=== PATIENT | male | born 1975 | race Hispanic/Latino ===

== ENCOUNTER 2021-12-29 10:06 | Inpatient (IN) | payer SELFPAY ==
[2021-12-29 10:56] LABS: SARS-CoV-2 Antigen Rapid Res Negative (Negative)
[2021-12-29 12:22] VITALS: BMI 22.4
[2021-12-29] MEDS ORDERED: ACETAMINOPHEN 500 MG TAB PO PRN (13:07)
[2021-12-29] MEDS ORDERED: VANCOMYCIN 1.75 GM in NA CHLORIDE 0.9% 500 ML IVPB SCH (14:00)
[2021-12-29] MEDS ORDERED: CEFEPIME 2 GM in NA CHLORIDE 0.9% 100 ML IV ONE (14:00)
[2021-12-29] MEDS ORDERED: VANCOMYCIN 1.25 GM in NA CHLORIDE 0.9% 250 ML IVPB ONE (14:00)
[2021-12-29] MEDS: NA CHLORIDE 0.9% 1,000 ML IV SCH ×2 (14:09→20:36)
[2021-12-29] MEDS: TRAMADOL HCL 50 MG TAB PO PRN ×2 (14:10→20:37)
[2021-12-29 15:56] LABS: Absolute Lymphocytes (CBC) 1.2 K/uL (0.7-4.9); Hematocrit 36.1 % (39.6-49.0); MCV 87.1 fL (80-100); RBC Red Blood Cell Count 4.15 M/uL (4.33-5.43)
[2021-12-29 16:22] LABS: Albumin 2.4 g/dL (3.4-5.0); Bilirubin Total 0.5 mg/dL (0.2-1.0); Potassium 4.1 mmol/L (3.5-5.1); Protein, Total 8.3 g/dL (6.4-8.2)
[2021-12-29] MEDS: INSULIN -REGULAR HUMAN 50 UNIT/0.5 ML ML SQ SCH ×2 (16:48→21:11)
[2021-12-29] MEDS: CEFEPIME 2 GM in NA CHLORIDE 0.9% 100 ML IV SCH (21:12)
[2021-12-29] MEDS: MORPHINE 4 MG/ML SYR IV PRN (21:19)
[2021-12-29] MEDS: ONDANSETRON 4 MG/2 ML VIAL IV PRN (21:20)
--- NOTE | 2021-12-29 21:43 | P.HP ---
Certification for Inpatient Patient admitted to: Inpatient With expected LOS: >2 Midnights Practitioner: I am a practitioner with admitting privileges, knowledge of patient current condition, hospital course, and medical plan of care. Services: Services provided to patient in accordance with Admission requirements found in Title 42 Section 412.3 of the Code of Federal Regulations Patient History Date of Service: 12/29/21 Reason for admission: septic arthritis History of Present Illness: 46yo M, PMH: NIDDM2 Presents to hospital under guidance of Dr. Hernandez for septic arthritis. Patient reports waxing/waning R knee swelling and pain over last ~1-2 months. Initially treated with anti-inflammatory medications with minimal improvement. Swelling worsened and he presented to outside ED - given antibiotics. He followed up with Ortho and had a recent MRI done a few days ago - revealed swelling and possible infection. Patient presented to Ortho clinic and was noted to have purulent drainage after initiation of antibiotics. He otherwise reports doing ok, no nausea/vomiting, no diarrhea, no chills. He has been having difficulty ambulating secondary to pain and inability to fully extend b/l legs currently Allergies No Known Allergies Allergy (Unverified 12/29/21 10:16) Home Medications: Metformin HCl 1 tab PO BID 12/29/21 - Past Medical/Surgical History Has patient received pneumonia vaccine in the past: No -: DM2 Past Surgical History: Patient denies surgical history - Family History Family History: Reviewed- Non-Contributory - Social History Smoking Status: Former smoker Patient receptive to therapy: Yes Alcohol use: No CD- Drugs: No Caffeine use: Yes Place of Residence: Home Review of Systems 10-point ROS is otherwise unremarkable Physical Examination - Vital Signs Temperature: 98.3 F Blood Pressure: 149/79 Pulse: 80 Respirations: 16 Pulse Ox (%): 97 - Physical Exam General: In no apparent distress, Oriented x3 HEENT: EOMI, Sclerae nonicteric Neck: Supple, No LAD Respiratory: Clear to auscultation bilaterally, Normal air movement Cardiovascular: No edema, Regular rate/rhythm Capillary refill: <2 Seconds Gastrointestinal: Soft and benign, Non-distended, No tenderness Musculoskeletal: No contractures Integumentary: No rashes, Tenderness/swelling (R knee with drainage) Neurological: Normal speech, Normal affect - Studies Laboratory Data (last 24 hrs) 12/29/21 15:21: Sodium 130 L, Potassium 4.1, BUN 14, Creatinine 0.67, Glucose 281 H, Total Bilirubin 0.5, AST 22, ALT 51, Alkaline Phosphatase 122 H 12/29/21 15:21: WBC 8.90, Hgb 12.5 L, Hct 36.1 L, Plt Count 270 Assessment and Plan - Advance Directives Does patient have a Living Will: No Does patient have a Durable POA for Healthcare: No Physician Review Additional Text: Problem List R knee septic arthritis NIDDM2 empiric anitibiotics - vanc/cefepime does not appear septic at this point blood cultures obtained pain medication Dr. George consulted; OR tomorrow will likely need multiple wash outs insulin Time Spent Managing Pts Care (In Minutes): 70
[2021-12-30] MEDS: VANCOMYCIN 1.25 GM in NA CHLORIDE 0.9% 250 ML IVPB SCH ×2 (01:24→14:42)
[2021-12-30] MEDS: TRAMADOL HCL 50 MG TAB PO PRN (02:43)
[2021-12-30 03:51] LABS: Absolute Lymphocytes (CBC) 1.7 K/uL (0.7-4.9); Hematocrit 31.3 % (39.6-49.0); Lymphocytes % 20.9 % (15.3-44.8); MCV 85.6 fL (80-100); MPV 7.8 fL (7.6-11.3); RBC Red Blood Cell Count 3.66 M/uL (4.33-5.43)
[2021-12-30] MEDS: ONDANSETRON 4 MG/2 ML VIAL IV PRN ×2 (04:03→22:58)
[2021-12-30] MEDS: MORPHINE 4 MG/ML SYR IV PRN ×4 (04:03→22:58)
[2021-12-30 04:11] LABS: Bilirubin Total 0.3 mg/dL (0.2-1.0); Magnesium 1.8 mg/dL (1.8-2.4); Phosphorus 2.7 mg/dL (2.5-4.9); Potassium 3.8 mmol/L (3.5-5.1); Protein, Total 6.9 g/dL (6.4-8.2)
[2021-12-30] MEDS: CEFEPIME 2 GM in NA CHLORIDE 0.9% 100 ML IV SCH ×3 (05:11→21:19)
[2021-12-30] MEDS ORDERED: MAGNESIUM SULFATE 1 gm IVPB 1 GM/100 ML BAG IV ONE (06:00)
--- NOTE | 2021-12-30 06:38 | P.PN ---
Date of Service: 12/30/21 Subjective: feels ok today, waiting for surgery pain continues, medication helps worsens when he tried to walk to bathroom overnight ROS: 10 point ROS as noted above, otherwise negative Physical Exam General: In no apparent distress, Oriented x3 HEENT: EOMI, Sclerae nonicteric Respiratory: Clear to auscultation bilaterally, Normal air movement Cardiovascular: No edema, Regular rate/rhythm Integumentary: No rashes, Tenderness/swelling (R knee with drainage) dressing in place MSK: limited ROM due to pain/swelling of R knee Neurological: Normal speech, Normal affect Problem List R knee septic arthritis vs prepatellar abscess NIDDM2 empiric anitibiotics - vanc/cefepime does not appear septic at this point blood cultures obtained pain medication Dr. George consulted; OR today will likely need multiple wash outs insulin as needed VTE: SCD Code: full Dispo: home, ~4-5 days Time Spent Managing Pts Care (In Minutes): 35
[2021-12-30] MEDS ORDERED: KCL 20 MEQ/100 mL IVPB 20 MEQ/100 ML BAG IV SCH (08:00)
[2021-12-30] MEDS: INSULIN -REGULAR HUMAN 50 UNIT/0.5 ML ML SQ SCH ×4 (08:34→21:00)
[2021-12-30 09:38] LABS: Protime INR 1.16
[2021-12-30] MEDS ORDERED: MIDAZOLAM HCL 2 MG/2 ML INJ ONE (11:07)
[2021-12-30] MEDS ORDERED: propofoL 200 MG/20 ML VIAL IV ONE (11:07)
[2021-12-30] MEDS ORDERED: FENTANYL CITR 100 MCG/2 ML ONE (11:07)
[2021-12-30] MEDS ORDERED: LIDOCAINE 2% MPF 5 ML VIAL ONE (11:08)
[2021-12-30] MEDS ORDERED: ONDANSETRON 4 MG/2 ML VIAL ONE (11:08)
[2021-12-30] MEDS: NA CHLORIDE 0.9% 1,000 ML IV SCH ×3 (12:00→21:19)
[2021-12-30] MEDS ORDERED: NA CHLORIDE 0.9% 1,000 ML ONE (12:11)
[2021-12-30] MEDS ORDERED: KETOROLAC 30 MG/ML INJ ONE (12:32)
--- NOTE | 2021-12-30 12:51 | P.BOP ---
Preoperative diagnosis: right knee prepatellar bursitis, possible patellar tendon pathology Postoperative diagnosis: same with partial patellar tendon necrosis/tear Primary procedure: Prepatellar bursectomy, debridement of necrotic tissue, irrigation Estimated blood loss: 20ccs Anesthesia: General Complications: None Transferred to: Recovery Room Condition: Good
[2021-12-30] MEDS: HYDROMORPHONE HCL 1 MG/ML INJ ONE ×4 (12:59→13:14)
[2021-12-30] MEDS ORDERED: HYDROMORPHONE HCL 1 MG/ML INJ ONE (13:25)
[2021-12-30] MEDS: HYDROCODONE/APAP 5/325 MG TAB PO PRN (21:20)
--- NOTE | 2021-12-30 23:00 | OP ---
Date of Procedure: 12/30/2021 Surgeon: Miquel Hernandez MD Preoperative Diagnosis: Right knee prepatellar abscess with possible patellar tendon pathology. Postoperative Diagnoses: 1.Extensive prepatellar abscess. 2.Apparent intraligamentous abscess of the patellar tendon with some necrotic changes of the medial 1/3. Surgery: Right prepatellar bursal excision with irrigation and sharp debridement as well as debridem ent of necrotic appearing patellar tendon. Estimated Blood Loss: 20 cc. Complications: There were no complications. Pathology Specimens: There are no pathology specimens sent. However, there are cultures sent. Indications For Operation: Mr. Yair Rodriguez came to see me in my office approximately 2 weeks ago. He had had a nearly a month history of pain and problems with his right knee that was accompanied wit h swelling and difficulty extending his knee. He did not have any erythema at that time. There was no significant effusion of the knee, appeared to be all related to superficial swelling. Did not ang[place] ear to be erythematous or infected. He was afebrile. There was some concern that he did have patell ar tendon pathology or patellar tendon partial rupture. Therefore, decision was made to obtain an MR I, however, family was told to watch extremely carefully for any signs of infection. They said they understand things as presented and he had an MRI. MRI demonstrates a very large hematoma by report w ith fluid collection as well as what appeared to be a tear of the patellar tendon. The next day, angeles arently he began having worsening pain as well as redness and swelling in his knee. His family took him to the emergency room where he was given antibiotics and was discharged. He then followed up in my office yesterday at which time he did have draining areas in the anterior aspect of his knee and n ow this does appear to be infected. Concern is that he has prepatellar abscess, which may be involvi ng the patellar tendon. Therefore, he is admitted from my office to the hospital on IV antibiotics u nder the care of the hospitalist with plan for bursal debridement and sharp debridement today. This was told to his family as well as the patient. They state they understand things as presented and wi shed to proceed. Procedure In Detail: Patient was taken to the operating room, placed in a supine position. General anesthesia was easily obtained by the Anesthesia staff. Following this, well-padded tourniquet was p laced on superior right thigh. His right lower extremity was then prepped and draped in usual steril e fashion for draining wound. This was followed by a rather long incision, which goes from some cent imeters above the patella down to past the tibial tubercle. As this passes through the skin down the region of the bursa, there was nusrat colored rather dark fluid, which was consistent with purulent m aterial, which escapes from the incision. This was sent for culture. Suction was used until the flu id was cleared. The bursal tissue was then easily seen. It was then removed from the skin from 12 o 'clock to 3 o' clock, to 6 o'clock, to 9 o'clock, 12 o'clock position until the remainder of the burs al tissue is adhered to the extensor mechanism. It was then shelled from a 12 o'clock position down to vertically past the patella to the patellar tendon. Then, the patellar tendon was identified and the tissue was then elevated from either side of the patellar tendon being extremely careful not to e nter the joint. After this, the patellar tendon and tendon sheath were seen and this bursal tissue w as removed. The patellar tendon itself with pressure on it did have purulent material. This appeare d to be more consistent with rather thicker pus as well as some ruptured necrotic finding. Decision was made to proceed with 2 L irrigation followed by curettes and rongeur to remove all the remainder bursal tissue leaving the patellar tendon for the final investigation. The lateral half of the cage lar tendon appeared to be healthy; however, the medial half or at least the most medial 1/3 appeared to be necrotic and ruptured. This was very gently and carefully removed using a tissue scissors. Th ere is some purulent material posterior to the more lateral aspect of the tendon. This was removed c arefully using meticulous dissection to avoid further trauma to the remaining patellar tendon and als o to avoid entering the knee joint itself as the knee joint itself still does not have an effusion. After this was again irrigated with a few liters of sterile saline, appeared to be very clean. After this, Bovie was used to Bovie anything. Which appeared maybe bleeding, but as always the tourniquet was dropped as extensive amount of small bleeding from nearly all surfaces. Anything that appeared t o be significant was bovied and after this, the wound was then packed with a Kerlix soaked in saline. This was followed by placement of ABD pad as well as a generous amount of padding using soft roll c ircumferentially. This was followed by 2 Juan wraps and he was placed back in his knee immobilizer. He was then awakened, taken to recovery room in good condition. There was no complication. /FIDENCIO Voice ID: [id number] Report ID: [id number]
[2021-12-31] MEDS: HYDROCODONE/APAP 5/325 MG TAB PO PRN ×4 (03:17→21:02)
[2021-12-31] MEDS: VANCOMYCIN 1.25 GM in NA CHLORIDE 0.9% 250 ML IVPB SCH (03:17)
--- NOTE | 2021-12-31 05:00 | CON ---
Date of Consultation: 12/30/2021 History: I see Mr. Mazariegos today. I saw him yesterday in my clinic. He has had a history of approxim ately 1 month of some pain in the anterior aspect of his knee. He came to see me approximately 2 wee ks ago and says that he had pain in the front of his knee. He had difficulty making straight leg rodriguez se. There was no sign of erythema or drainage or infection. He is not taking any antibiotics and de cision was made to pursue MRI for the possibility of patellar tendon injury. He did have that this S atday and it demonstrates a large collection, what the radiologist calls, hematoma as well as some damage to the patellar tendon. On seeing in my clinic, it was relayed to me that he went [facility] on Monday, the day after the MRI, and had significant pain related to his knee. He then a rrives to my office today and now has draining area in the anterior aspect of his knee. This now angeles ears to be more consistent with infection. He was given antibiotics in the emergency room. He can p erform a straight leg raise and maintain it. MRI is reviewed, which demonstrates possible damage to the patellar tendon as well as anterior fluid collection. Assessment: Patient now with septic prepatellar bursitis with probable pathology related to the gamez llar tendon. He is admitted to the hospital with IV antibiotics that day with a plan for irrigation and debridement today. Risks, benefits, and alternatives of this have been discussed with both he an d his family members. He speaks mostly Belgian, but his family member is definitely very fluent in [place] [email or web address] and they both state they understand things as presented. The plan is for irrigation and debri rosibel with bursectomy and inspection of the patellar tendon, leaving the wound open, to go back for a second look, and possible other procedures Monday. They state they understand everything as pres ented. It should be noted that today his white count is normal. Sedimentation rate is pending. All other questions have been answered. /RIVERL Voice ID: [id number] Report ID: [id number]
[2021-12-31] MEDS: CEFEPIME 2 GM in NA CHLORIDE 0.9% 100 ML IV SCH ×3 (05:19→21:00)
[2021-12-31] MEDS: NA CHLORIDE 0.9% 1,000 ML IV SCH (05:20)
[2021-12-31] MEDS: MORPHINE 4 MG/ML SYR IV PRN ×3 (05:20→17:37)
[2021-12-31] MEDS: ONDANSETRON 4 MG/2 ML VIAL IV PRN (05:20)
[2021-12-31 05:55] LABS: Hematocrit 31.4 % (39.6-49.0); MCV 85.6 fL (80-100); MPV 7.7 fL (7.6-11.3); RBC Red Blood Cell Count 3.67 M/uL (4.33-5.43)
[2021-12-31 06:15] LABS: Potassium 4.2 mmol/L (3.5-5.1)
--- NOTE | 2021-12-31 06:46 | P.PN ---
Date of Service: 12/31/21 Subjective: feels better, pain improved no new / worsening symptoms ROS: 10 point ROS as noted above, otherwise negative Physical Exam General: In no apparent distress, Oriented x3 Respiratory: Clear to auscultation bilaterally, Normal air movement Cardiovascular: No edema, Regular rate/rhythm Integumentary: No rashes, Tenderness/swelling (R knee) dressing in place MSK: limited ROM due to pain/swelling of R knee Neurological: Normal speech, Normal affect Problem List Extensive prepatellar abscess intraligamentous abscess of the patellar tendon with some necrotic changes of the medial /3. NIDDM2 empiric anitibiotics - vanc/cefepime does not appear septic blood cultures obtained - no growth f/u intra-op cultures pain medication Dr. Hernandez consulted; OR 12/30 - no joint involvement, +prepatellar abscess will likely need multiple wash outs insulin as needed VTE: SCD Code: full Dispo: home, ~4-5 days Time Spent Managing Pts Care (In Minutes): 35
[2021-12-31] MEDS: INSULIN -REGULAR HUMAN 50 UNIT/0.5 ML ML SQ SCH ×4 (07:30→20:59)
[2021-12-31 08:07] LABS: Magnesium 1.8 mg/dL (1.8-2.4); Phosphorus 2.4 mg/dL (2.5-4.9)
[2021-12-31] MEDS: VANCOMYCIN 1.5 GM in NA CHLORIDE 0.9% 500 ML IVPB SCH (13:12)
[2021-12-31] MEDS: CALCIUM CARBONATE 500 MG TAB PO SCH (17:41)
[2021-12-31] MEDS: lisinopriL 5 MG TAB PO SCH (17:43)
[2021-12-31] MEDS ORDERED: DOCUSATE NA 100 MG CAP PO PRN (21:36)
[2022-01-01] MEDS: VANCOMYCIN 1.5 GM in NA CHLORIDE 0.9% 500 ML IVPB SCH ×4 (01:43→22:10)
[2022-01-01] MEDS: HYDRALAZINE HCL 20 MG/ML VIAL IV PRN (01:44)
[2022-01-01] MEDS: NA CHLORIDE 0.9% 1,000 ML IV SCH ×2 (02:01→14:42)
[2022-01-01 06:19] LABS: MCV 85.2 fL (80-100); MPV 7.6 fL (7.6-11.3); RBC Red Blood Cell Count 3.75 M/uL (4.33-5.43)
--- NOTE | 2022-01-01 06:33 | P.PN ---
Date of Service: 01/01/22 Subjective: no acute events overnight scheduled for OR today ROS: 10 point ROS as noted above, otherwise negative Physical Exam General: NAD, AOx3 Respiratory: Clear to auscultation bilaterally, Normal air movement Cardiovascular: No edema, Regular rate/rhythm Integumentary: No rashes, R knee surgical dressing in place MSK: limited ROM due to pain/swelling of R knee Neurological: Normal speech, Normal affect Problem List Extensive prepatellar abscess, patella bursitis intraligamentous abscess of the patellar tendon with some necrotic changes of the medial 1/3. 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 Hernandez consulted; OR 12/30 - +prepatellar abscess planned to go to OR today insulin as needed VTE: SCD Code: full Dispo: home, ~3-4 days, pending if needs further washouts Time Spent Managing Pts Care (In Minutes): 35
[2022-01-01] MEDS: ONDANSETRON 4 MG/2 ML VIAL IV PRN (06:44)
[2022-01-01] MEDS: MORPHINE 4 MG/ML SYR IV PRN (06:44)
[2022-01-01] MEDS: CEFEPIME 2 GM in NA CHLORIDE 0.9% 100 ML IV SCH ×3 (06:45→21:14)
[2022-01-01 06:46] LABS: Albumin 1.9 g/dL (3.4-5.0); Magnesium 1.7 mg/dL (1.8-2.4); Phosphorus 2.8 mg/dL (2.5-4.9); Potassium 3.6 mmol/L (3.5-5.1)
[2022-01-01] MEDS: INSULIN -REGULAR HUMAN 50 UNIT/0.5 ML ML SQ SCH ×4 (07:30→21:14)
[2022-01-01] MEDS ORDERED: KCL 20 MEQ/100 mL IVPB 20 MEQ/100 ML BAG IV ONE ×2 (08:00→09:00)
[2022-01-01] MEDS ORDERED: NA CHLORIDE 0.9% 1,000 ML ONE (08:21)
[2022-01-01] MEDS ORDERED: MIDAZOLAM HCL 2 MG/2 ML INJ ONE (08:44)
[2022-01-01] MEDS ORDERED: LIDOCAINE 1% MPF 2 ML AMPULE ONE (08:45)
[2022-01-01] MEDS: CALCIUM CARBONATE 500 MG TAB PO SCH (09:00)
[2022-01-01] MEDS ORDERED: MAGNESIUM SULFATE 1 gm IVPB 1 GM/100 ML BAG IV ONE (09:00)
[2022-01-01] MEDS: lisinopriL 5 MG TAB PO SCH (09:00)
[2022-01-01] MEDS ORDERED: SUCCINYLCHOLINE 20 MG/ML (10 ML) IV ONE ×2 (09:05→09:15)
[2022-01-01] MEDS ORDERED: propofoL 200 MG/20 ML VIAL IV ONE (09:07)
[2022-01-01] MEDS ORDERED: FENTANYL CITR 100 MCG/2 ML ONE (09:07)
[2022-01-01] MEDS ORDERED: KETOROLAC 30 MG/ML INJ ONE (09:35)
--- NOTE | 2022-01-01 10:12 | P.BOP ---
Preoperative diagnosis: s/p right knee prepatellar bursitis, patellar tendon pathology Postoperative diagnosis: same Primary procedure: debridement of necrotic tissue, irrigation closure over drain Estimated blood loss: 30 Anesthesia: General Complications: None Transferred to: Recovery Room Condition: Good
[2022-01-01] MEDS: HYDROCODONE/APAP 5/325 MG TAB PO PRN (14:42)
--- NOTE | 2022-01-01 21:49 | OP ---
Date of Procedure: 01/01/2022 Surgeon: Miquel Hernandez MD Preoperative Diagnosis: Left knee status post irrigation, sharp debridement, and bursectomy for intr atendinous abscess of the patellar tendon as well as prepatellar bursitis. Postoperative Diagnosis: Left knee status post irrigation, sharp debridement, and bursectomy for int ratendinous abscess of the patellar tendon as well as prepatellar bursitis. Procedure: Left knee irrigation and sharp debridement and second look to ensure no further necrotic or infected material seen. Complications: There were no complications. Specimens: There were no pathology specimens sent. Estimated Blood Loss: 30 cc. Indications For Operation: Mr. Yair Rodriguez is a 46-year-old male who came to see me in my office an d was admitted, underwent irrigation and sharp debridement 2 days ago. Please refer to index procedu re for these indications. Indication for this is irrigation and debridement of open wound second-loo k with probable closure over drain. Procedure In Detail: Patient was taken to operating room, placed in supine position. General anesth esia was obtained by staff. Following this, well-padded tourniquet was placed on superior right thig h. Right lower extremity was then prepped and draped in usual fashion for open wound. The wound was inspected. It was found to have bleeding surfaces throughout. There may be a slight amount of gamez llar tendon, which appears slightly unhealthy. This was debrided using combination of scissors as we ll as rongeur. The remainder of the knee was then irrigated with 2 L of sterile saline looking for a ny retained areas of purulence. There was found to be no knee effusion even today. After this has b een completed, it was again inspected throughout and decision was made to close over medium Hemovac d rain. This was done using 2-0 nylon sutures and he was then placed in a very, very well-padded steri le dressing over an Aquacel and placed in a knee immobilizer. He was then taken to recovery room. /FIDENCIO Voice ID: [id number] Report ID: [id number]
[2022-01-02 03:44] LABS: C-Reactive Protein 39.8 mg/L (<3.00); Magnesium 1.8 mg/dL (1.8-2.4); Phosphorus 2.9 mg/dL (2.5-4.9)
[2022-01-02] MEDS: HYDRALAZINE HCL 20 MG/ML VIAL IV PRN ×2 (04:18→04:23)
[2022-01-02] MEDS ORDERED: MAGNESIUM SULFATE 1 gm IVPB 1 GM/100 ML BAG IV ONE (04:42)
[2022-01-02] MEDS: VANCOMYCIN 1.5 GM in NA CHLORIDE 0.9% 500 ML IVPB SCH ×3 (05:04→23:14)
[2022-01-02] MEDS: CEFEPIME 2 GM in NA CHLORIDE 0.9% 100 ML IV SCH ×4 (06:21→21:04)
--- NOTE | 2022-01-02 06:44 | P.PN ---
Date of Service: 01/02/22 Subjective: Improving, feeling better, pain is less Tolerating diet, urinating, passing flatus No fever No new symptoms/worsening ROS: 10 point ROS as noted above, otherwise negative Physical Exam General: NAD, AOx3 Respiratory: Clear to auscultation bilaterally, Normal air movement Cardiovascular: No edema, Regular rate/rhythm Integumentary: No rashes, R knee surgical dressing in place, drain in place MSK: limited ROM due to pain/swelling of R knee Neurological: Normal speech, Normal affect Problem List Extensive prepatellar abscess, patella bursitis intraligamentous abscess of the patellar tendon with some necrotic changes of the medial 04/05. 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 Hernandez consulted; OR 12/30 - +prepatellar abscess, ORIF 01/01washout, drain placement, and closure Patient is weightbearing as tolerated, PT consulted No further plans for longer Patient with hyperglycemia, check A1c, start basal insulin VTE: SCD Code: full Dispo: home, Possibly tomorrow Time Spent Managing Pts Care (In Minutes): 35
[2022-01-02] MEDS: lisinopriL 5 MG TAB PO SCH (08:00)
[2022-01-02] MEDS: INSULIN -REGULAR HUMAN 50 UNIT/0.5 ML ML SQ SCH ×4 (08:01→22:06)
[2022-01-02] MEDS ORDERED: D50W 25 GM/50 ML SYRINGE IV PRN (10:14)
[2022-01-02] MEDS ORDERED: GLUCAGON 1 MG/VIAL IM PRN (10:14)
[2022-01-02] MEDS ORDERED: DEXTROSE 10%-WATER 125 ML IV PRN (10:23)
[2022-01-02] MEDS: INSULIN 70/30 100 UNITS/ML SQ SCH (16:22)
[2022-01-02] MEDS: HYDROCODONE/APAP 5/325 MG TAB PO PRN (21:04)
[2022-01-03] MEDS: HYDROCODONE/APAP 5/325 MG TAB PO PRN (04:52)
[2022-01-03] MEDS ORDERED: CEFEPIME 2 GM VIAL ONE (05:08)
[2022-01-03] MEDS ORDERED: NA CHLORIDE 0.9% 100 ML ONE (05:17)
[2022-01-03] MEDS: CEFEPIME 2 GM in NA CHLORIDE 0.9% 100 ML IV SCH (05:23)
[2022-01-03] MEDS: VANCOMYCIN 1.5 GM in NA CHLORIDE 0.9% 500 ML IVPB SCH (06:06)
[2022-01-03 06:32] LABS: Magnesium 1.9; Phosphorus 2.6 mg/dL (2.5-4.9); Potassium 3.5 mmol/L (3.5-5.1)
[2022-01-03] MEDS: INSULIN 70/30 100 UNITS/ML SQ SCH ×2 (08:30→16:17)
[2022-01-03] MEDS: INSULIN -REGULAR HUMAN 50 UNIT/0.5 ML ML SQ SCH ×4 (08:30→20:26)
[2022-01-03] MEDS: lisinopriL 5 MG TAB PO SCH (08:31)
[2022-01-03] MEDS ORDERED: POTASSIUM 25 MEQ EFFERV TAB PO ONE (09:00)
[2022-01-03] MEDS: SMZ./TMP. 800/160 MG TABLET PO SCH ×2 (09:57→20:25)
--- NOTE | 2022-01-03 22:51 | P.PN ---
Date of Service: 01/03/22 Subjective: Improving having pain in knee after working with PT felt unsteady of feet, needed help lifting leg up concerned getting into house with stairs ROS: 10 point ROS as noted above, otherwise negative Physical Exam General: NAD, AOx3 Respiratory: Clear to auscultation bilaterally, Normal air movement Cardiovascular: No edema, Regular rate/rhythm Integumentary: No rashes, R knee with dressing in place, drain in place MSK: limited ROM due to pain/swelling of R knee Neurological: Normal speech, Normal affect Problem List Extensive prepatellar abscess, patella bursitis intraligamentous abscess of the patellar tendon with some necrotic changes of the medial 04/05. 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 Hernandez consulted; OR 12/30 - +prepatellar abscess, ORIF 01/01washout, drain placement, and closure Patient is weightbearing as tolerated, PT consulted No further plans for further surgery Patient with hyperglycemia, check A1c, start basal insulin will need 70/30 on discharge; uninsured; patient counselled, in agreement; has been on insulin for brief period years ago PT to work with patient to go up stairs; pain control Code: full Dispo: home, tomorrow Time Spent Managing Pts Care (In Minutes): 35
[2022-01-04] MEDS: INSULIN -REGULAR HUMAN 50 UNIT/0.5 ML ML SQ SCH ×2 (07:30→11:34)
[2022-01-04] MEDS: INSULIN 70/30 100 UNITS/ML SQ SCH (07:30)
[2022-01-04] MEDS ORDERED: POTASSIUM 25 MEQ EFFERV TAB PO ONE (07:45)
[2022-01-04] MEDS: lisinopriL 5 MG TAB PO SCH (09:00)
[2022-01-04] MEDS ORDERED: HOME MED 1 EA UNK (Metformin Hcl [Metformin Hcl] 1,000 MG Tablet) PO SCH (09:00)
[2022-01-04] MEDS: SMZ./TMP. 800/160 MG TABLET PO SCH (09:00)
[2022-01-04 09:09] VITALS: O2SAT 96
--- NOTE | 2022-01-04 16:14 | P.DS ---
Admission Date: 12/29/21 Discharge Date: 01/04/22 Disposition: ROUTINE DISCHARGE Discharge Condition: FAIR Reason for Admission: septic arthritis Brief History of Present Illness: 46yo M, PMH: NIDDM2 presented to the hospital under guidance of Dr. Hernandez for septic arthritis. Patient reported waxing/waning R knee swelling and pain over 1-2 months. Initially treated with anti-inflammatory medications with minimal improvement. Swelling worsened and he presented to the outside ED.He was given antibiotics. He followed up with Ortho and had a recent MRI done which revealed swelling and possible infection. Patient presented to Ortho clinic and was noted to have purulent drainage after initiation of antibiotics. He reported difficulty with ambulating secondary to pain and inability to fully extend the right knee. Patient was hospitalized for further management. Hospital Course: Problem List Extensive prepatellar abscess, patella bursitis intraligamentous abscess of the patellar tendon with some necrotic changes of the medial 1/3. IDDM2 Patient admitted to the medical floor and started on IV vancomycin and cefepime She was seen in consultation by orthopedic surgery Dr. Hernandez who performed I&D of prepatellar abscess, debridement and washout of the right knee joint, drain placement and closure. blood cultures obtained - no growth Intra-op cultures grew MRSA. Patient treated with Bactrim Dr. Hernandez consulted; OR 12/30 - +prepatellar abscess, ORIF 01/01washout, drain placement, and closure Patient is weightbearing as tolerated, seen by PT and patient was able to ambulate with crutches. No further plans for further surgery per Ortho. Patient with hyperglycemia. Blood sugar was managed with NPH insulin which is titrated up to 20 units twice daily. Also resumed his metformin. Patient discharged with NPH insulin in addition to metformin for better glucose control.. Seen by infectious disease who recommended Cipro. He is discharged with 2-week course of Cipro. Follow-up with Dr. Hernandez as outpatient. Vital Signs/Physical Exam: Temp Pulse Resp BP Pulse Ox 97.4 F 84 17 148/89 H 99 01/04/22 11:49 01/04/22 11:49 01/04/22 11:49 01/04/22 11:49 01/04/22 11:49 General: Alert, In no apparent distress, Oriented x3 HEENT: Mucous membr. moist/pink Neck: Supple, JVD not distended Respiratory: Clear to auscultation bilaterally, Normal air movement Cardiovascular: No edema, Regular rate/rhythm, Normal S1 S2 Gastrointestinal: Normal bowel sounds, Soft and benign, Non-distended, No tenderness Musculoskeletal: Other (Right knee in Juan wrap and brace) Integumentary: No cyanosis Neurological: Normal strength at 5/5 x4 extr Laboratory Data at Discharge: WBC 7.00 K/uL (4.3-10.9) 01/01/22 05:20 Hgb 11.4 g/dL (13.6-17.9) L 01/01/22 05:20 Hct 32.0 % (39.6-49.0) L 01/01/22 05:20 Plt Count 291 K/uL (152-406) 01/01/22 05:20 PT 12.8 SECONDS (9.5-12.5) H 12/30/21 09:13 INR 1.16 12/30/21 09:13 Sodium 136 mmol/L (136-145) 01/03/22 05:32 Potassium 3.5 mmol/L (3.5-5.1) 01/03/22 05:32 BUN 7 mg/dL (7-18) 01/03/22 05:32 Creatinine 0.48 mg/dL (0.55-1.3) L 01/03/22 05:32 Glucose 249 mg/dL (74-106) H 01/03/22 05:32 Phosphorus 2.6 mg/dL (2.5-4.9) 01/03/22 05:32 Magnesium 1.9 01/03/22 05:32 Total Bilirubin 0.3 mg/dL (0.2-1.0) 12/30/21 03:17 AST 20 U/L (15-37) 12/30/21 03:17 ALT 41 U/L (12-78) 12/30/21 03:17 Alkaline Phosphatase 99 U/L (45-117) 12/30/21 03:17 Home Medications: Alcohol Antiseptic Pads [Alcohol Prep Pads] 1 each TP TID #100 pad 01/04/22 Blood Sugar Diagnostic [Blood Glucose Test Strip] 1 each MC TID #100 strip 01/04/22 Blood-Glucose Meter [Blood Glucose Meter] 1 each MC TID #1 unit 01/04/22 Ciprofloxacin HCl [Cipro 500 MG Tablet] 500 mg PO BID #28 tab 01/04/22 Docusate [Colace Cap*] 100 mg PO DAILY PRN #30 cap 01/04/22 Hydrocodone 5/APAP 325 [[place] 5/325*] 1 tab PO Q6H PRN #12 tab 01/04/22 Insulin 70/30 NPH/Reg Human [Novolin 70/30*] 20 unit SQ BIDAC #10 ml 01/04/22 Lactobacillus Acidophilus [Acidophilus] 1 each PO BID #60 cap 01/04/22 Lancets [Blood Lancets] 1 each MC TID #100 units 01/04/22 Metformin HCl 1 tab PO BID #60 tab 01/04/22 Syringe with Needle, 1 ml [Easy Touch] 1 each MC TID #100 units 01/04/22 lisinopriL [Prinivil*] 5 mg PO DAILY #30 tab 01/04/22 New Medications: Lactobacillus Acidophilus [Acidophilus] 1 each PO BID #60 cap Alcohol Antiseptic Pads [Alcohol Prep Pads] 1 each TP TID #100 pad Blood-Glucose Meter [Blood Glucose Meter] 1 each MC TID #1 unit Blood Sugar Diagnostic [Blood Glucose Test Strip] 1 each MC TID #100 strip Lancets [Blood Lancets] 1 each MC TID #100 units Ciprofloxacin HCl [Cipro 500 MG Tablet] 500 mg PO BID #28 tab Docusate [Colace Cap*] 100 mg PO DAILY PRN #30 cap PRN Reason: Constipation Syringe with Needle, 1 ml [Easy Touch] 1 each MC TID #100 units Metformin HCl 1 tab PO BID #60 tab Hydrocodone 5/APAP 325 [[place] 5/325*] 1 tab PO Q6H PRN #12 tab PRN Reason: Pain Scale 5-7 (Moderate) Insulin 70/30 NPH/Reg Human [Novolin 70/30*] 20 unit SQ BIDAC #10 ml lisinopriL [Prinivil*] 5 mg PO DAILY #30 tab Diet: ADA Activity: Fall precautions Followup: Miquel Hernandez MD [ACTIVE - CAN ADMIT] - (Within 2 weeks.) Time spent managing pt's care (in minutes): 36
[2022-01-04] MEDS ORDERED: INSULIN 70/30 100 UNITS/ML SQ SCH (16:30)
[2022-01-04 16:48] VITALS: BP 140/73; TEMP 97.2
[2022-01-04] MEDS ORDERED: METFORMIN HCL 500 MG TAB PO SCH (17:00)
--- NOTE | 2022-01-04 17:40 | CON ---
History Of Present Illness: This is a 46-year-old male, coming in with right knee infection. The ernie reeves was operated earlier this on January 01 by Orthopedic team. Cultures are growing Staph aureus . The patient feels much better today. Denies any chest pain, abdominal pain, constipation, or diar donnie. Past medical history of diabetes mellitus and hypertension. Denies any other problems. Past Medical History: As per HPI. Social History: Tobacco, positive. Alcohol, positive. Family History: Noncontributory. Medications: Currently, the patient on Bactrim p.o. Review of Systems: A 10-point review was performed. Physical Examination: General: This is a 46-year-old male, lying in bed, not in any acute cardiopulmonary distress. Vital Signs: Temperature 97, pulse 84, respirations 17, blood pressure 148/89. HEENT: Unremarkable. Neck: Supple. Lungs: Clear to auscultation. Heart: S1, S2. Regular. Abdomen: Soft, nontender. Bowel sounds present. Extremity: Right knee in surgical dressing and surgical splint and able to move his feet and toe wit hout any problems. Laboratory Data: Shows WBC 7, hemoglobin 11.4, platelets are 291. Chemistry shows sodium 136, BUN i s 7, creatinine 0.4, glucose is 218. Assessment And Plan: A 46-year-old male with history of diabetes mellitus, coming in with right knee infection, status post surgical debridement by Orthopedic team. Wound cultures are growing Staphylo coccus aureus, sensitive to sulfa drugs and quinolones. We will recommend to start the patient on Ci pro 500 mg q.12 hours for a total of 14 days. Monitor signs for infection. Follow up with surgical team. We will follow the patient as needed. NF/MODL Voice ID: [id number] Report ID: [id number]
== END 2022-01-04 16:40 | disposition home or self-care (01) | DRG 983 ==
LOC: 4TH 11:07
PROVIDERS: ADMIT Hospitalist; ATTEND Internal Medicine
PROC: 0MBN0ZZ Excision of Right Knee Bursa and Ligament, Open Approach (ICD-10-PCS; principal; 2021-12-30 11:30)
PROC: 0LBQ0ZZ Excision of Right Knee Tendon, Open Approach (ICD-10-PCS; 2022-01-01)
DX: L02.415 Cutaneous abscess of right lower limb (principal); M70.41 Prepatellar bursitis, right knee; E11.65 Type 2 diabetes mellitus with hyperglycemia; I10 Essential (primary) hypertension; B95.61 Methicillin susceptible Staphylococcus aureus infection as the cause of diseases classified elsewhere; Z79.4 Long term (current) use of insulin; Z79.84 Long term (current) use of oral hypoglycemic drugs; Z87.891 Personal history of nicotine dependence; Z79.899 Other long term (current) drug therapy; Z20.822 Contact with and (suspected) exposure to COVID-19
CPT/HCPCS: 36415; 80048; 80053; 80069; 80202; 82947; 83036; 83735; 84100; 85025; 85027; 85610; 85652; 86140; 87040; 87070; 87075; 87077; 87186; 87205; 87811; 88304; 88305; 94760; 97116; 97161; 97760; J0330; J0360; J0692; J1170; J1815; J2001; J2250; J2405; J2704; J3010; J3370; J3475; J3480; J7030; J7040; J7050